=== PATIENT | male | born 1990 | race American Indian/Alaskan Native ===

== ENCOUNTER 2018-02-02 01:48 | Emergency (ER) | payer OTHER ==
[2018-02-02 01:48] VITALS: BMI 25.2
[2018-02-02 03:15] VITALS: RESP 20; O2SAT 98
[2018-02-02] MEDS ORDERED: Oxycodone/Acetaminophen 5/325 mg Tab PO STA (04:08)
[2018-02-02] MEDS ORDERED: Oxycodone/Acetaminophen 5/325 mg Tab ONE (04:29)
--- NOTE | 2018-02-02 04:40 | C.PDOC ---
History Of Present Illness Pt presents to ER with c/o of pain to left knee s/p fall with knee in immobilizer. Pt is s/p ACL repairin 2016and is still being followed by ortho. Denies weakness or numbness to LLE. No head injury or LOC Time Seen by Provider: 02/02/18 03:36 Chief Complaint (Nursing): Lower Extremity Problem/Injury History Per: Patient History/Exam Limitations: no limitations Onset/Duration Of Symptoms: Sudden Onset ([employer]) Current Symptoms Are (Timing): Still Present Severity: Moderate - Knee Description Of Injury: Fell Alleviating Factor(s): Ice Therapy Past Medical History Vital Signs: Last Vital Signs Temp Pulse 111 H 02/02/18 03:14 Resp 20 02/02/18 03:14 BP 139/85 02/02/18 03:14 Pulse Ox 98 02/02/18 03:14 - Medical History PMH: No Chronic Diseases Denies: Depression - [facility] Procedures INJECT/INFUSE ELECTROLYT (07/11/15) INJECT/INFUSE NEC (07/11/15) Family History: States: Unknown Family Hx - Social History Hx Tobacco Use: No Hx Alcohol Use: Yes Hx Substance Use: Yes - Immunization History Hx Tetanus Toxoid Vaccination: No Hx Influenza Vaccination: No Hx Pneumococcal Vaccination: No Review Of Systems Musculoskeletal: Positive for: Other (left knee pain) Neurological: Negative for: Weakness, Numbness Physical Exam - Physical Exam Appears: Well, No Acute Distress Skin: Normal Color Head: Atraumatic Eye(s): bilateral: Normal Inspection Extremity: No Normal ROM (decrease to left knee due to pain), Tenderness (left anterior knee), No Calf Tenderness, No Capillary Refill, No Deformity, Swelling (anterior left knee), No Other (no warmth or erythema) Extremity: Bilateral: Normal Color And Temperature Pulses: Left Dorsalis Pedis: Normal, Right Dorsalis Pedis: Normal Neurological/Psych: Oriented x3, Normal Motor, Normal Sensation Gait: Steady ED Course And Treatment O2 Sat by Pulse Oximetry: 98 - Other Rad Left knee X-Ray: Interpreted by Me, Viewed By Me Interpretation: Left patella fx or surgical fx, no other abn Progress Note: Pt placed back in his immobilizer, crutches given with instructions, pain meds ordered. Pt will follow upwith his own orthopedist and is stable for discharge with nonweight bearing instructions until ortho f/u Reassessment Condition: Improved Disposition Counseled Patient/Family Regarding: Diagnosis, Need For Followup, Rx Given - Disposition Referrals: [facility] [Outside] Disposition: HOME/ ROUTINE Disposition Time: 04:48 Condition: STABLE Additional Instructions: Please follow up with orthopedist Continue current meds leg elevation Apply ICE Return to ER if worse Instructions: Knee Pain (DC) - Clinical Impression Clinical Impression: Left knee pain
[2018-02-02 05:17] VITALS: BP 126/88; PULSE 92; TEMP 98.3
--- NOTE | 2018-02-02 08:33 | RAD ---
PROCEDURE: Left Knee Radiographs. HISTORY: COMPARISON: None available. FINDINGS: BONES: Postsurgical changes likely related to ACL repair. Displacement patella fracture, age indeterminate; correlate clinically. The remainder the visualized osseous structures appear intact. JOINTS: No dislocation. JOINT EFFUSION: No significant joint effusion. OTHER FINDINGS: Marked soft tissue swelling. IMPRESSION: Marked soft tissue swelling. Displaced mid patellar fracture, age indeterminate; correlate clinically. Postsurgical changes likely related to ACL repair.
== END 2018-02-02 05:39 | disposition home or self-care (01) ==
LOC: C.ER 01:48
DX: M25.562 Pain in left knee (principal)